=== PATIENT | female | born 1970 | race Caucasian/White ===

== ENCOUNTER 2021-05-16 17:04 | Emergency (ER) | payer BC ==
[~2021-05-16] VITALS: Ht 180.3 cm; Wt 97.5 kg
[~2021-05-16 17:04] MED LIST: NORG1TAB88 PO; [UNRECOGNIZED DRUG - OTHER] PO
[2021-05-16] MEDS ORDERED: MORPHINE 2 MG SYG IM ONE (22:00)
[2021-05-16] MEDS ORDERED: MORPHINE 2 MG SYG ONE (22:07)
[2021-05-16] MEDS ORDERED: IBUP-2077 PO (23:26)
[2021-05-16] MEDS ORDERED: TRAM-355 PO (23:26)
[2021-05-16 23:54] VITALS: BP 142/84
== END 2021-05-16 23:55 | disposition home or self-care (01) ==
LOC: EDH 17:04
DX: M75.02 Adhesive capsulitis of left shoulder (principal); M47.812 Spondylosis without myelopathy or radiculopathy, cervical region; M19.012 Primary osteoarthritis, left shoulder; Z79.1 Long term (current) use of non-steroidal anti-inflammatories (NSAID)
CPT/HCPCS: 72040; 73030; 93005; 96372

== ENCOUNTER → 2021-10-26 | Outpatient (CLI) | payer BC ==
[~2021-10-26] MED LIST changes: +IBUP-2077 PO; +TRAM-355 PO
== END | disposition home or self-care (01) ==
LOC: RAH 08:54
PROVIDERS: ATTEND Internal Medicine
DX: Z12.31 Encounter for screening mammogram for malignant neoplasm of breast (principal)
CPT/HCPCS: 77067

== ENCOUNTER → 2022-04-11 | Outpatient (CLI) | payer BC | END | disposition home or self-care (01) | LOC: RAH 07:58 | PROVIDERS: ATTEND Internal Medicine | DX: N13.2 Hydronephrosis with renal and ureteral calculous obstruction (principal); N28.1 Cyst of kidney, acquired; N23 Unspecified renal colic; N32.89 Other specified disorders of bladder | CPT/HCPCS: 76770 ==

== ENCOUNTER 2022-08-18 14:45 | Emergency (ER) | payer BC ==
[~2022-08-18] VITALS: Ht 180.3 cm; Wt 104.3 kg
[2022-08-18 15:38] LABS: BASOPHILS % (AUTO) 0.4 % (0.0-5.0); EOSINOPHILS % (AUTO) 1.6 % (0.0-8.0); HEMATOCRIT 36.7 % (36-48); LYMPHOCYTES % (AUTO) 20.1 % (21.0-51.0); MEAN CORPUSCULAR HEMOGLOBIN 28.6 pg (27.0-33.0); MEAN CORPUSCULAR HGB CONC 31.6 g/dL (32.0-36.0); MEAN CORPUSCULAR VOLUME 90.6 fL (79-99); MONOCYTES % (AUTO) 6.9 % (3.0-13.0); NEUTROPHILS % (AUTO) 70.6 % (40.0-77.0); PLATELET COUNT (AUTO) 286 K/uL (130-400); RED BLOOD CELL COUNT(AUTO) 4.05 MIL/uL (4.00-5.50); RED CELL DISTRIBUTION WIDTH 14.5 % (11.0-15.5); WHITE BLOOD COUNT (AUTO) 9.4 K/uL (4.8-10.8)
[2022-08-18 16:03] LABS: CREATININE 0.8 mg/dL (0.5-1.5)
[2022-08-18 16:17] LABS: ALBUMIN 3.8 g/dL (3.5-5.0); TOTAL PROTEIN, SERUM 7.3 g/dL (6.0-8.3)
[2022-08-18 20:52] VITALS: BP 140/82
[2022-08-18] MEDS ORDERED: MECL-262 PO (21:19)
[2022-08-18] MEDS ORDERED: ASPIRIN 81MG CHEW TAB PO ONE (21:30)
== END 2022-08-18 21:31 | disposition home or self-care (01) ==
LOC: EDH 14:45
DX: R53.1 Weakness (principal); I10 Essential (primary) hypertension; F41.9 Anxiety disorder, unspecified; Z79.899 Other long term (current) drug therapy; Z90.89 Acquired absence of other organs; Z98.890 Other specified postprocedural states; Z87.442 Personal history of urinary calculi
CPT/HCPCS: 36415; 70450; 80053; 84484; 85025; 93005